=== PATIENT | male | born 1960 | race Caucasian/White ===

== ENCOUNTER 2017-09-17 11:40 | Outpatient (CLI) | payer OTHER ==
--- NOTE | 2017-09-17 12:51 | RAD ---
LEFT KNEE 2 VIEWS: HISTORY: Knee pain. Disability evaluation. FINDINGS: There are mild to moderate degenerative changes noted. Mild narrowing of the medial joint space. Mi ld spurring from the mediofemoral and tibial condyles and mild spurring from the patella. Small join t effusion cannot be excluded. IMPRESSION: Moderate degenerative changes of the left knee with a suggestion of small joint effusion. POS: [facility]
--- NOTE | 2017-09-17 12:53 | RAD ---
CHEST TWO VIEWS: HISTORY: Disability evaluation. FINDINGS: The lung rodgers are clear. The heart and mediastinum are unremarkable. Osseous structures are unrem arkable. IMPRESSION: Unremarkable chest. POS: [facility]
== END 2017-09-17 11:41 | disposition home or self-care (01) ==
LOC: NAV RAD 11:40
PROVIDERS: ATTEND Family Medicine
DX: M17.12 Unilateral primary osteoarthritis, left knee (principal); I10 Essential (primary) hypertension
CPT/HCPCS: 71046